=== PATIENT | male | born 1955 ===

== ENCOUNTER 2017-10-26 06:11 | Day surgery (SDC) | payer MEDICARE, MEDICAID ==
--- NOTE | 2017-10-22 18:45 | Pre-op HX & Phy Repo 2 SIG ---
DATE OF ADMISSION: 10/26/2017 PREOPERATIVE DIAGNOSIS: Vitreous hemorrhage, left eye. BRIEF NOTE: This is the first [place] admission for the patient who is a very nice 62-year-old gentleman with a history of a dense vitreous hemorrhage in the left eye associated with diabetic retinopathy. PAST OCULAR HISTORY: Remarkable for laser treatment in both eyes and previous Avastin injections. He has undergone cataract surgery in both eyes. He developed a dense hemorrhage on the left eye with rubeosis and hyphema, which has failed to adequately clear. He is admitted for a vitrectomy on that side. PAST MEDICAL HISTORY: Remarkable for diabetes, kidney disease, and a prior stroke. He is currently maintained on Lumigan and Combigan eyedrops as well as nifedipine, calcium acetate, aspirin, and glipizide. ALLERGIES: He has no known allergies. PHYSICAL EXAMINATION: Best vision at the time of admission was 20/25, -2 on the right eye, counting fingers in the left with pressures of 13 and 12. The anterior segments were quiet on the right. The left showed sluggish pupillary reaction and a very faint hyphema. There was also mild resolving rubeosis . Lens implants were seen bilaterally. The right fundus showed diabetic macular edema and previous laser as well as severe nonperfusion as evidenced on angiography. On the left, there was glaucomatous cupping. Significant diabetic macular edema, mild to moderate vitreous hemorrhage, and severe nonperfusion were noted. ASSESSMENT: Vitreous hemorrhage, left eye, with severe proliferative diabetic retinopathy. PLAN: The plan is to perform pars plana vitrectomy with membrane dissection as needed, extensive endolaser, and an Avastin injection. The risks and benefits of surgery went over with the patient including potential infection, hemorrhage, recurrent hemorrhaging, and the possibility of loss of the eye. The risk of anesthesia was discussed. The patient understands and consents to the surgery, which will be performed on Thursday. Corey Paulino M.D. DR: GILMA JOB#: [id number] CC:
[2017-10-26] VITALS (9 sets, daily range): BP systolic 131–146; BP diastolic 61–67
[~2017-10-26] VITALS: Ht 165.1 cm; Wt 83.0 kg
[2017-10-26] MEDS ORDERED: Maxitrol Opth Oint 3.5gm ONE (06:24)
[2017-10-26] MEDS ORDERED: Kenalog-40 1ml Vial ONE (06:24)
[2017-10-26] MEDS ORDERED: EPINEPHrine 1mg/1ml Amp ONE (06:24)
[2017-10-26] MEDS ORDERED: Lidocaine 2% MPF 5ml Vial INJ ONE (06:24)
[2017-10-26] MEDS ORDERED: Tetracaine 0.5% Opth 4ml Soln ONE (06:25)
[2017-10-26] MEDS ORDERED: Kenalog-10 5ml Inj ONE (06:25)
[2017-10-26] MEDS ORDERED: Dexamethasone 4mg/ml vial ONE (06:25)
[2017-10-26] MEDS ORDERED: BSS 500ml btl ONE ×2 (06:25→06:57)
[2017-10-26] MEDS ORDERED: BSS 15ml BTL ONE (06:25)
[2017-10-26] MEDS ORDERED: Bupivacaine 0.75% 30ml vial INJ ONE (06:25)
[2017-10-26] MEDS ORDERED: Pred Forte 1% Opth Susp 1ml ONE (06:26)
[2017-10-26] MEDS ORDERED: Sodium Hyaluronate 10 mg/ml 0.85ml ONE (06:26)
[2017-10-26] MEDS ORDERED: Cyclopentolate 1% Opth Sol 2ml ONE (06:28)
[2017-10-26] MEDS ORDERED: Flurbiprofen 0.03% Opth Sol 2.5ml ONE (06:28)
[2017-10-26] MEDS ORDERED: Vigamox Opth Soln 3ml ONE (06:28)
[2017-10-26] MEDS ORDERED: Phenylephrine 2.5% Op 2ml Soln ONE (06:28)
[2017-10-26] MEDS ORDERED: Pred Forte 1% Opth Susp 1ml LEFT EYE ONE (06:45)
[2017-10-26] MEDS ORDERED: Lidocaine 1% MPF 10mg/ml 5ml ONE (06:56)
[2017-10-26] MEDS ORDERED: Propofol 200mg/20ml IV ONE (06:56)
[2017-10-26] MEDS ORDERED: fentaNYL 100 mcg/2 mL IV ONE (06:56)
[2017-10-26] MEDS ORDERED: Povidone-Iodine 5% opth solution ONE ×2 (06:57→06:58)
--- NOTE | 2017-10-26 06:58 | Pre-Procedure Note/Attestation ---
Pre-Procedure Note/Attestation Complete Prior to Procedure Planned Procedure: left Procedure Narrative: PPV, membrane peel, endolaser, Avastin L eye Indications for Procedure Pre-Operative Diagnosis: Vitreous heme Left eye Attestation I attest that I discussed the nature of the procedure; its benefits; risks and complications; and alternatives (and the risks and benefits of such alternatives ), prior to the procedure, with the patient (or the patient's legal automotive sales representative). I attest that, if there was a reasonable possibility of needing a blood transfusion, the patient (or the patient's legal automotive sales representative) was given the [facility] standardized written summary, pursuant to the [place] Blood Safety Act ([place] Health and Safety Code # 1645, as amended). I attest that I re-evaluated the patient just prior to the surgery and that there has been no change in the patient's H&P, except as documented below: DAPHNEY PELAYO Oct 26, 2017 06:57
[2017-10-26] MEDS: Phenylephrine 2.5% Op 2ml Soln LEFT EYE SCH ×3 (07:07→07:16)
[2017-10-26] MEDS: Vigamox Opth Soln 3ml LEFT EYE SCH ×3 (07:07→07:16)
[2017-10-26] MEDS: Flurbiprofen 0.03% Opth Sol 2.5ml LEFT EYE SCH ×3 (07:07→07:16)
[2017-10-26] MEDS: Cyclopentolate 1% Opth Sol 2ml LEFT EYE SCH ×3 (07:07→07:16)
[2017-10-26 07:13] LABS: BASOPHILS % (AUTO) 0.8 % (0.0-2.0); EOSINOPHILS % (AUTO) 4.4 % (0.0-3.0); HEMATOCRIT 34.8 % (42.0-52.0); HEMOGLOBIN 12.1 G/DL (14.2-18.0); LYMPHOCYTES % (AUTO) 16.3 % (20.0-45.0); MEAN CORPUSCULAR VOLUME 92 FL (80-99); MONOCYTES % (AUTO) 6.9 % (1.0-10.0); NEUTROPHILS % (AUTO) 71.6 % (45.0-75.0); PLATELET COUNT 296 K/UL (150-450); RED BLOOD COUNT 3.78 M/UL (4.70-6.10)
[2017-10-26 07:16] LABS: ANION GAP 11 mmol/L (5-15); BLOOD UREA NITROGEN 47 mg/dL (7-18); CALCIUM 8.9 MG/DL (8.5-10.1); CARBON DIOXIDE 28 MMOL/L (21-32); CHLORIDE 100 MMOL/L (98-107); CREATININE 9.1 MG/DL (0.55-1.30); POTASSIUM 4.3 MMOL/L (3.5-5.1); SODIUM 139 MMOL/L (136-145)
--- NOTE | 2017-10-26 07:27 | Anethesia Preoperative Eval ---
Anesthesia Pre-op PMH/ROS General Date of Evaluation: Oct 26, 2017 Time of Evaluation: 07:00 Anesthesiologist: ASA Score: ASA 4 Mallampati Score Class I : Soft palate, uvula, fauces, pillars visible Class II: Soft palate, uvula, fauces visible Class III: Soft palate, base of uvula visible Class IV: Only hard plate visible Mallampati Classification: Class II Surgeon: vinh Diagnosis: vitreous hemorrhage left eye Surgical Procedure: vitrectomy left eye Anesthesia History: none Family History: no anesthesia problems Allergies: Coded Allergies: No Known Allergies (Unverified , 10/23/17) Medications: see eMAR Past Medical History Cardiovascular: Reports: HTN; Denies: CAD, [place], valve dz, arrhythmia, other Pulmonary: Denies: asthma, COPD, [place], other Gastrointestinal/Genitourinary: Reports: ESRD; Denies: GERD, CRI, other Neurologic/Psychiatric: Reports: CVA; Denies: dementia, depression/anxiety, TIA, other Endocrine: Reports: DM; Denies: hypothyroidism, steroids, other HEENT: Reports: cataract (L), cataract (R), other - left eye vitreous hemorrhage; Denies: glaucoma, [place] (L), [place] (R) Hematology/Immune: Denies: anemia, DVT, bleeding disorder, other Musculoskeletal/Integumentary: Denies: OA, RA, DJD, DDD, edema, other PSxH Narrative: av sshunt, back surgery Anesthesia Pre-op Phys. Exam Physician Exam Last Vital Signs Date Time Temp Pulse Resp B/P (MAP) Pulse Ox O2 Delivery O2 Flow Rate FiO2 10/26/17 07:06 98.7 77 18 140/63 99 Room Air 98.7 Constitutional: NAD Cardiovascular: RRR Respiratory: CTA Gastrointestinal: S/NT/ND Airway Exam Mallampati Score: Class II MO: full ROM: full Teeth: intact Dentures: no upper, no lower Anesthesia Pre-op A/P Labs Hematology Test 10/26/17 06:35 White Blood Count 16.0 K/UL (4.8-10.8) H Red Blood Count 3.78 M/UL (4.70-6.10) L Hemoglobin 12.1 G/DL (14.2-18.0) L Hematocrit 34.8 % (42.0-52.0) L Mean Corpuscular Volume 92 FL (80-99) Mean Corpuscular Hemoglobin 31.9 PG (27.0-31.0) H Mean Corpuscular Hemoglobin Concent 34.6 G/DL (32.0-36.0) Red Cell Distribution Width 12.0 % (11.6-14.8) Platelet Count 296 K/UL (150-450) Mean Platelet Volume 6.9 FL (6.5-10.1) Neutrophils (%) (Auto) 71.6 % (45.0-75.0) Lymphocytes (%) (Auto) 16.3 % (20.0-45.0) L Monocytes (%) (Auto) 6.9 % (1.0-10.0) Eosinophils (%) (Auto) 4.4 % (0.0-3.0) H Basophils (%) (Auto) 0.8 % (0.0-2.0) Chemistry Test 10/26/17 05:35 Sodium Level Pending Potassium Level Pending Chloride Level Pending Carbon Dioxide Level Pending Blood Urea Nitrogen Pending Creatinine Pending Estimat Glomerular Filtration Rate Pending Glucose Level Pending Calcium Level Pending Risk Assessment & Plan Assessment: asa 4 Plan: MAC Status Change Before Surgery: No Pre-Antibiotics Drug: none Romelia Jung M.D. Oct 26, 2017 07:27
[2017-10-26] MEDS ORDERED: NS Irrig 1000ml ONE (07:30)
[2017-10-26] MEDS ORDERED: DiphenhydrAMINE 50mg/ml Inj IVP PRN (07:30)
[2017-10-26] MEDS ORDERED: Labetalol 5mg/ml 20ml vial IV PRN (07:30)
[2017-10-26] MEDS ORDERED: Sterile Water Irrig 1000ml IRRIG ONE (07:30)
[2017-10-26] MEDS ORDERED: Avastin 10mg Inj IVITRE ONE (07:30)
[2017-10-26] MEDS ORDERED: fentaNYL 100 mcg/2 mL IV PRN (07:30)
--- NOTE | 2017-10-26 07:54 | Immediate Post-Op Evaluation ---
Immediate Post-Op Evalulation Immediate Post-Op Evalulation Procedure: vitrectomy left eye Date of Evaluation: Oct 26, 2017 Time of Evaluation: 08:35 IV Fluids: NS25ml Blood Products: 0 Estimated Blood Loss: 0 Urinary Output: 0 Blood Pressure Systolic: 146 Blood Pressure Diastolic: 62 Pulse Rate: 77 Respiratory Rate: 19 O2 Sat by Pulse Oximetry: 99 Temperature (Fahrenheit): 98.6 Pain Score (1-10): 0 Nausea: No Vomiting: No Complications none Patient Status: awake, patent, none Hydration Status: adequate Drug: none Romelia Jung M.D. Oct 26, 2017 07:54
--- NOTE | 2017-10-26 08:40 | Brief Operative Note ---
Immediate Post Operative Note Operative Note Chief Complaint: Clouds in vision, L eye Pre-op Diagnosis: Vitreous heme Left eye Procedure: PPV, endolaser (1152 spots), Avastin injection 1.25 mg Left eye Post-op Diagnosis: same as pre-op Surgeon: vinh Program Developer: none Anesthesia: MAC Specimen: none Complications: none Fluids: Per anesthesia Estimated Blood Loss: none Drains: none Packing: none Implant(s) used?: No DAPHNEY PELAYO Oct 26, 2017 08:40
[2017-10-26] MEDS ORDERED: Norco 5mg/325mg tab ORAL PRN (08:45)
--- NOTE | 2017-10-26 08:57 | 48 Hour Post Anesthesia Eval ---
Post Anesthesia Evaluation Procedure: vitrectomy left eye Date of Evaluation: Oct 26, 2017 Time of Evaluation: 08:44 Blood Pressure Systolic: 138 0: 61 Pulse Rate: 75 Respiratory Rate: 21 Temperature (Fahrenheit): 98.4 O2 Sat by Pulse Oximetry: 97 Airway: patent Nausea: No Vomiting: No Pain Intensity: 0 Hydration Status: adequate Post-Anesthesia Complications: none Follow-up care needed: ready to discharge Romelia Jung M.D. Oct 26, 2017 08:57
--- NOTE | 2017-10-26 12:25 | Cardiology Report ---
APPROVED REPORT EKG Measurement Heart [id number] Normal sinus rhythm Prolonged QT Abnormal ECG
--- NOTE | 2017-10-26 14:15 | Operative Note - Dictated ---
DATE OF OPERATION: 10/26/2017 PREOPERATIVE DIAGNOSIS: Vitreous hemorrhage, left eye. POSTOPERATIVE DIAGNOSIS: Vitreous hemorrhage, left eye. PROCEDURES: 1. Pars plana vitrectomy. 2. Endolaser. 3. Avastin injection, left eye. SURGEON: Corey Paulino M.D. BEATER ROOM HELPER: None. ANESTHESIA: Local sedation. ANESTHESIOLOGIST: Romelia Jung M.D. JUSTIFICATION FOR SURGERY: This 62-year-old male with a long history of diabetes and renal failure developed a nonclearing vitreous hemorrhage in the left eye with suspected rubeosis. He was admitted for vitrectomy. BRIEF NOTE: The patient was brought to the operative room, placed on OR table in supine position. After a time-out was performed and agreed upon by the staff, and initial monitoring secured by Dr. Jung. Retrobulbar and Van Lint blocks were given in standard way. When the blocks taken effect, he was prepped and draped in normal manner. A lid speculum was inserted into the left eye. Using a 23-gauge trocar system, cannulas were placed in all except infranasal quadrant. Infusion secured inferotemporally. Vitrectomy was begun posterior to the iris plane. A central core vitrectomy was done followed by peripheral vitrectomy leaving a small vitreous skirt. The posterior hyaloid was gently elevated and blood on the surface of the hyaloid as well as the hyaloid itself were removed. No significant traction was noted. The endolaser was then brought into the eye and a power of 0.4 deleon and duration 0.2 seconds, a total of 1158 lesions were applied in the retinal periphery extending from near the pars plana to just posterior to the equator. Scleral depression was done and no peripheral breaks, tears, or detachments were seen. The superior sclerotomies were then closed with 8-0 Vicryl suture after the cannulas had been removed. Through the inferotemporal infusion cannula, 1.25 mg of Avastin was injected. The eye was reinflated with balanced salt solution to normal pressure and this cannula was removed and the sclerotomy at this site subsequently closed with the same suture. Subconjunctival Decadron and gentamicin were then injected inferiorly and Maxitrol and atropine ointments were instilled. The eye was patched and shielded. The patient taken to recovery in excellent condition, there were no complications. Corey Paulino M.D. DR: JACKELYN JOB#: [id number] CC: Corey Paulino M.D.; Fax#: [phone] [facility]
[2017-10-26] MEDS ORDERED: ASPIR 8181 MG ORAL (16:15)
[2017-10-26] MEDS ORDERED: LISINOPRIL40 MG ORAL (16:16)
[2017-10-26] MEDS ORDERED: GLIPIZIDE10 MG PO (16:18)
[2017-10-26] MEDS ORDERED: NIFEDIPINE ER60 M2 ORAL (16:18)
[2017-10-26] MEDS ORDERED: RENA-VITE RX T1 EAC1 PO (16:19)
[2017-10-26] MEDS ORDERED: CALCIUM ACETAT667 MG PO (16:20)
--- NOTE | 2017-10-27 09:30 | Pre-op HX & Phy Repo 2 SIG ---
DATE OF ADMISSION: 10/26/2017 REASON FOR EVALUATION: I was asked by Dr. Corey Paulino to see this 62-year-old male who is going for elective surgery on the left eye. The patient has vitreous hemorrhage of left eye. Please see full Ophthalmology History and Physical by Dr. Corey Paulino. The patient was evaluated. Chart was reviewed. The patient speaks French and we obtained some information through pole truck driver. PAST MEDICAL HISTORY AND REVIEW OF SYSTEMS: Remarkable for history of hypertension, diabetes mellitus type 2. The patient has end-stage renal disease and on hemodialysis, last dialysis was October 23. The patient denies history of heart attack, chest pain, or palpitation. No history of respiratory problem, asthma, or bronchitis. Denies history of GI bleeding, ulcer disease, or gastroesophageal reflux. No constipation. Denied history of anemia. No history of thyroid problem. No prostate problem. PAST SURGICAL HISTORY: Cataract of left eye, arteriovenous shunt, right hip fracture and surgery, and also amputation of the two toes on the left foot. FAMILY HISTORY: Both parents have diabetes mellitus. ALLERGIES: Not known. PRESENT MEDICATIONS: Include lisinopril 40 mg, nifedipine, calcium supplement, glipizide, multivitamins, Nephro-vitamins, and aspirin 81 mg. HABITS: The patient smoked for 15 years and drinks alcohol. Denies street drug. PHYSICAL EXAMINATION: GENERAL: Alert, well-developed, well-nourished male in his 60s, in no acute distress. VITAL SIGNS: Blood pressure 140/63, temperature 98.7, pulse 77, O2 saturation 99% on room air. SKIN: Dry and warm. No rashes. No ulcers. LYMPH NODES: Not enlarged. HEENT: Head normocephalic. Ears, clear, no discharge. Hearing is intact. Nose, clear, no discharge. Eyes, full description per Dr. Corey Paulino. Mouth, clear and moist, no dentures. NECK: No jugular venous distention. Carotids artery +2. Trachea midline. CHEST: No deformity or asymmetry. LUNGS: Clear to auscultation and percussion. No rales or rhonchi. HEART: Sinus rhythm. No ectopy. No murmur. No S3, S4. ABDOMEN: Soft, obese. Liver and spleen not enlarged. No rebound. EXTREMITIES: No edema. Left arm has an AV shunt for dialysis. Right hip scar post surgery on the hip and two-toe amputee on the left foot. No varices. NERVOUS SYSTEM: No tremor. No nystagmus. Central nerves II through XII in normal limits. LABORATORY AND DIAGNOSTIC DATA: ECG, normal sinus rhythm, 78 per minute, prolonged QT interval. High blood sugar at 117. Potassium level 4.3, sodium 139, chloride 100, BUN 47, creatinine 9.1, estimated GFR 6.0 millimeter/minute, glucose 125, and calcium 8.9. CBC, white blood cells 16,000, red blood cells 3.78, hemoglobin 12.1, hematocrit 34.8. IMPRESSION: 1. Vitreous hemorrhage, left eye. 2. Type 2 diabetes mellitus, controlled. 3. Hypertension, controlled. 4. End-stage renal disease. Last dialysis on October 23, 2017. 5. Anemia, mild, secondary to end-stage renal disease and diabetes. 6. Leukocytosis, 16,000 white blood cells. 7. Prolonged QT interval on EKG, asymptomatic. PLAN: Pars plana vitrectomy, membrane peel, endolaser 23G to left eye by Dr. Corey Paulino. CONCLUSION: The patient is a 62-year-old male with multiple medical problems which include diabetes, hypertension, and end-stage renal disease. The patient's vital signs stable. EKG showed prolonged QT interval. The patient is asymptomatic. He did not eat or drink from yesterday 5 p.m. The patient's condition optimized for surgery. Thank you very much, Dr. Paulino, for privilege to participate in presurgical care of this interesting patient. Frank Green M.D. DR: [place] JOB#: [id number] CC:
== END 2017-10-26 10:10 | disposition home or self-care (01) ==
LOC: SUR 06:11
DX: H43.12 Vitreous hemorrhage, left eye (principal); E11.3592 Type 2 diabetes mellitus with proliferative diabetic retinopathy without macular edema, left eye; I12.0 Hypertensive chronic kidney disease with stage 5 chronic kidney disease or end stage renal disease; E11.22 Type 2 diabetes mellitus with diabetic chronic kidney disease; N18.6 End stage renal disease; Z99.2 Dependence on renal dialysis; D63.1 Anemia in chronic kidney disease; D72.829 Elevated white blood cell count, unspecified; Z79.82 Long term (current) use of aspirin; Z89.422 Acquired absence of other left toe(s)
CPT/HCPCS: 36415; 67036; 80048; 82962; 85025; 93005; J0171; J1100; J2250; J2704; J3470; J3490; J9035; 94003; 94150